=== PATIENT | female | born 1960 | race Caucasian/White ===

== ENCOUNTER 2019-05-23 11:44 | Outpatient (REF) | payer BC, SELFPAY ==
--- NOTE | 2019-05-23 10:30 | PAPFT_PTH ---
PATIENT: MARIO ALBERTO VARGHESE LOC: [facility] U#:[id number] AGE/SX: 59/F ROOM: RE05/23/[address]: SABINE Corona : 1960 BED: DIS: 05/23/2019 SPEC #: [id number] RECD: 05/23/19 12:22 STATUS: RHONDA REVianney #: [id number] ABE: 05/23/19 10:[address]: Karla Fung DEPT: [facility] Cytology RECD BY: Kayla Amaya ENTERED: 05/23/19 12:23 SP TYPE: PAPFT BRAD DR: Unknown,Unknown Tissues: 1 - CX/ENDOCX FOR PAP SMEARS Procedures: PAP THIN PREP/UVM Screening HPV DNA PROBE Comments: [id number]
== END 2019-05-23 12:04 ==
LOC: LBN 11:44
PROVIDERS: Visit Provider Nurse Practitioner Family
DX: Z12.4 Encounter for screening for malignant neoplasm of cervix (principal); Z11.51 Encounter for screening for human papillomavirus (HPV)
CPT/HCPCS: 88142; 87624

== ENCOUNTER 2020-06-28 08:20 | Day surgery (SDC) | payer BC, SELFPAY ==
[2020-06-28 08:39] VITALS: BP 131/77; PULSE 71; RESP 16; TEMP 36.1; O2SAT 100
[2020-06-28] MEDS: Lactated Ringers 1,000 ML 80 ML IV (09:10)
--- NOTE | 2020-06-28 10:07 | W.PM.DSUDISC ---
Discharge Plan Disposition Patient Disposition: HOME Condition: Good Discharge Details Reason For Visit: EGD, Colonoscopy Attending Provider: Allie Marks Primary Care Provider: Jillian Mccarthy Home Meds and New Rx's Prescriptions: Continued levothyroxine [Synthroid] 25 mcg tablet 112 mcg PO DAILY RF: 0 Discontinued bisacodyl [Dulcolax (bisacodyl)] 5 mg tablet,delayed release (DR/EC) 5 mg PO ONCE Qty: 4 RF: 0 polyethylene glycol 3350 17 gram/dose powder 17 g PO ONCE Qty: 238 RF: 0 Discharge Instructions Additional Instructions: Findings: Your upper endoscopy was normal. Your colonoscopy was normal. Follow up: Plan for routine colon screening in 10 years. Please call if you develop: fevers >101.5 Nausea or Vomiting Abdominal or chest pain that is not transient DAY SURGERY UNIT POST EGD/COLONOSCOPY INSTRUCTIONS 1. Because there will be medication in your system for the next 24 hours, you may feel a little sleepy. Your coordination will be affected. Therefore: a. Do not drive or operate dangerous equipment for 24 hours. b. Do not drink alcohol beverages for 24 hours (not even beer). c. Plan to go home and rest for the day. 2. Generally there are no restrictions on your activity after a day or so has gone by, but you may feel a bit fatigued for a few days. 3 After you arrive home you may have a light meal and return to a normal diet as you can tolerate it without feeling sick to your stomach. 4. After surgery, you may feel pain or discomfort. This should be only transient, but if it persists please contact your doctor. 5. If there are any questions regarding the findings of your procedure, please feel free to contact your doctor. 6. If you are unable to contact your doctor with a problem, contact the hospital at [phone]. 7. Continue all your regular medications unless directed otherwise. I understand the above instructions and have no questions. Signature of Patient or Responsible Adult Escort Date/Time Name of Responsible Adult Escort Signature of Nurse Date/Time Activity:: Activity as Tolerated Diet:: As Tolerated Discharge Orders Discharge Orders: Discharge Order (Routine); Ordered 06/28/20 Ordered By: Allie Marks DS: Diagnosis Discharge Diagnosis (1) GERD (gastroesophageal reflux disease): Status: Chronic (2) Normal colonoscopy: Status: Acute
--- NOTE | 2020-06-28 10:08 | W.PM.ENDDOP ---
Date of service: 06/28/20 Time of Service: 11:10 Endoscopy Report DATE OF PROCEDURE: 06/28/20 PRE-OP DIAGNOSIS: GERD, Colon screening POST-OP DIAGNOSIS: other (Normal EGD, normal colon) PROCEDURE: EGD with biopsy Colonoscopy SURGEON: Allie Marks ANESTHESIA: MAC INDICATIONS: This patient presents for evaluation of GERD and her first screening colonoscopy. No FH colon cancer. PROCEDURE DESCRIPTION: The patient was placed in the left lateral position and propofol titrated to sedation. The endoscope was advanced into the esophagus under direct visualization. The scope was passed through the stomach and into the duodenum. There was no duodenitis or ulceration noted. The stomach itself was normal including on retroflexed view of the fundus and lesser curvature. Routine biopsies were taken from the gastric antrum. The GE junction was inspected and showed no significant stricture, inflammation, masses or Barretts. The scope was slowly withdrawn with no other esophageal lesions found. Digital rectal examination revealed no abnormalities. The scope was advanced to the cecum without difficulty. The ileocecal valve and appendiceal orifice were clearly identified. The prep was good. The scope was slowly withdrawn over the course of greater than 6 minutes with no abnormalities seen in the ascending, transverse, descending, sigmoid colon or rectum including on retroflexed view. The patient tolerated the procedure well and was stable to recovery. Plan for routine screening colonoscopy in 10 years or sooner if symptoms indicate.
--- NOTE | 2020-06-28 10:30 | STOM_PTH ---
PATIENT: MARIO ALBERTO VARGHESE LOC: [facility] U#:[id number] AGE/SX: 60/F ROOM: RE06/28/[address]: Allie Marks MD : 1960 BED: DIS: 06/28/2020 SPEC #: [id number] RECD: 06/28/20 12:55 STATUS: RHONDA REQ #: [id number] ABE: 06/28/20 10:[address]: Allie Marks DEPT: Surgical Specimen RECD BY: Omayra Campbell ENTERED: 06/28/20 12:56 SP TYPE: STOMACH OTHR DR: Jillian Mccarthy Tissues: 1 - STOMACH BIOPSY Procedures: GROSS AND MICRO LEVEL 4 Comments: [id number]
[2020-06-28 11:31] VITALS: BP 109/59; PULSE 60; RESP 16; TEMP 36.3; O2SAT 100
== END 2020-06-28 11:39 | disposition home or self-care (01) ==
PROVIDERS: PCP Family Medicine; Visit Provider Surgery
PROC: (CPT 43239; principal; 2020-06-28 10:00)
DX: Z12.11 Encounter for screening for malignant neoplasm of colon (principal); K21.9 Gastro-esophageal reflux disease without esophagitis
CPT/HCPCS: 43239; 45378; 88305; J2001; J2704

== ENCOUNTER 2024-01-18 16:08 | Outpatient (REF) | payer BC, SELFPAY ==
--- NOTE | 2024-01-18 16:00 | CER_PTH ---
PATIENT: MARIO ALBERTO VARGHESE LOC: [facility] U#:[id number] AGE/SX: 63/F ROOM: RE01/18/[address]: Tiana Perales MD : 1960 BED: DIS: 01/18/2024 SPEC #: [id number] RECD: 01/18/24 17:29 STATUS: RHONDA REVianney #: [id number] ABE: 01/18/24 16:[address]: Tiana Perales DEPT: Surgical Specimen RECD BY: Omayra Campbell ENTERED: 01/18/24 17:29 SP TYPE: CER OTHR DR: Jillian Mccarthy Tissues: 1 - CERVICAL BIOPSY Procedures: GROSS AND MICRO LEVEL 4 Comments: [id number]
--- NOTE | 2024-01-18 16:00 | PAPFT_PTH ---
PATIENT: MARIO ALBERTO VARGHESE LOC: [facility] U#:[id number] AGE/SX: 63/F ROOM: RE01/18/[address]: Tiana Perales MD : 1960 BED: DIS: 01/18/2024 SPEC #: [id number] RECD: 01/18/24 17:42 STATUS: RHONDA REVianney #: [id number] ABE: 01/18/24 16:[address]: Tiana Perales DEPT: [facility] Cytology RECD BY: Omayra Campbell ENTERED: 01/18/24 17:43 SP TYPE: PAPFT BRAD DR: Jillian Mccarthy Tissues: 1 - CX/ENDOCX FOR PAP SMEARS Procedures: PAP THIN PREP/[facility] Screening HPV DNA PROBE Comments: [id number]
== END 2024-01-18 16:09 | disposition home or self-care (01) ==
LOC: LBN 16:08
PROVIDERS: PCP Family Medicine; Visit Provider Obstetrics & Gynecology
DX: Z12.4 Encounter for screening for malignant neoplasm of cervix (principal); Z11.51 Encounter for screening for human papillomavirus (HPV); N84.0 Polyp of corpus uteri
CPT/HCPCS: 88142; 88305; 87624